=== PATIENT | female | born 1970 | race Caucasian/White ===

== ENCOUNTER 2017-12-16 16:55 | Inpatient (IN) | payer MEDICARE ==
[~2017-12-16] VITALS: Ht 160 cm; Wt 110.7 kg
[~2017-12-16 16:55] MED LIST: CELEXA; GABAPENTIN100 MG PO; IRON; LASIX20 MG PO; MULTIVITAMINS1 EAC8 PO; NEXIUM40 MG PO; POTASSIUM99 MG PO; SUBOXONE 8 MG-1 EAC2 SL; ZOFRAN8 MG PO
[2017-12-16] MEDS ORDERED: SODIUM CHLORIDE 0.9% 1000ML 1,000 ML IV STA (17:31)
[2017-12-16] MEDS ORDERED: ONDANSETRON HCL INJ 2 MG/ML VIAL IV STA (17:31)
[2017-12-16] MEDS ORDERED: MORPHINE SULFATE 4 MG/ML SYR IV STA (17:31)
[2017-12-16] MEDS ORDERED: MORPHINE SULFATE 2 MG/ML SYR IV ONE (17:45)
[2017-12-16 18:20] LABS: BILIRUBIN,URINE 1+ (NEGATIVE); KETONES,URINE NEGATIVE (NEGATIVE); LEUKOCYTE ESTERASE ,URINE 2+ (NEGATIVE); URINE UROBILINOGEN 1 mg/dL (0.2 - 1)
[2017-12-16 18:22] LABS: NITRITE,URINE POSITIVE (NEGATIVE); PROTEIN,URINE DIPSTICK TRACE (NEGATIVE)
[2017-12-16 18:23] LABS: CLARITY,URINE HAZY (CLEAR); COLOR,URINE AMBER (YELLOW); PREGNANCY TEST, URINE NEGATIVE (NEGATIVE)
[2017-12-16 18:31] LABS: BACTERIA,URINE MANY /HPF; EPITHELIAL CELLS,URINE MODERATE /LPF; WBC,URINE (MAN) >50 /HPF (0-5)
[2017-12-16 18:32] LABS: AMORPHOUS SEDIMENT,URINE FEW (FEW); MUCUS,URINE MODERATE (RARE)
--- NOTE | 2017-12-16 18:59 | Diagnostic Imaging Report ---
EXAM: CT Abdomen and Pelvis WITHOUT contrast INDICATION: Severe right flank pain. Nausea and vomiting. COMPARISON: None. TECHNIQUE: Abdomen and pelvis were scanned utilizing a multidetector helical scanner from the lung base to the pubic symphysis without administration of IV contrast. Absence of intravenous contrast decreases sensitivity for detection of focal lesions and vascular pathology. Coronal and sagittal reformations were obtained. Routine protocol was performed. IV CONTRAST: None. ORAL CONTRAST: Water RADIATION DOSE: Total DLP: 748.55No change from CT BRAIN WO with report dated 06/06/2012 8:21 AM. mGy*cm Estimated effective dose: (DLP x 0.015 x size factor) mSv COMPLICATIONS: None FINDINGS: LINES and TUBES: None. LOWER THORAX: Unremarkable HEPATOBILIARY: No focal hepatic lesions. No biliary ductal dilation. GALLBLADDER: Surgically absent. SPLEEN: No splenomegaly. PANCREAS: No focal masses or ductal dilatation. ADRENALS: No adrenal nodules KIDNEYS/URETERS: Mild right sided hydroureteronephrosis. 5 mm calcification in the posterior right hemipelvis on image 155 series 3 corresponding to sagittal image 72, concerning for an obstructing UVJ calculus. No cystic or solid mass lesions. 2 punctate calculi in the lower pole of the right kidney. Bilateral perinephric stranding, right greater than left. GI TRACT: Postoperative changes involving the stomach and proximal small bowel suggestive of status post gastric bypass. PELVIC ORGANS/BLADDER: Unremarkable. LYMPH NODES: No lymphadenopathy. VESSELS: Unremarkable. PERITONEUM / RETROPERITONEUM: No free air or fluid. BONES: Degenerative disc disease at L5-S1. SOFT TISSUES: Unremarkable. IMPRESSION: 1. Findings suggestive of 5 mm obstructing calculus right UVJ resulting in mild right hydroureteronephrosis. Signed by: Dr. Felipe Kinney M.D. on 12/16/2017 6:55 PM
[2017-12-16] MEDS ORDERED: ACETAMINOPHEN 325 MG TAB PO ONE (19:15)
[2017-12-16] MEDS ORDERED: ACETAMINOPHEN 325 MG TAB ONE (19:17)
[2017-12-16] MEDS ORDERED: CEFTRIAXONE SOD 1 GM VIAL IV SCH ×2 (19:30→20:45)
[2017-12-16] MEDS ORDERED: GENTAMICIN 80MG/NS 100 ML 100 ML IV ONE ×4 (19:45)
[2017-12-16 20:19] LABS: BASOPHILS % 0.4 % (0.0-1.0); EOSINOPHILS % 0.1 % (0.0-6.0); HEMATOCRIT 31.3 % (34.2-44.1); HEMOGLOBIN 9.5 g/dL (12.0-16.0); LYMPHOCYTES # (AUTO) 0.6 (1.0-3.2); LYMPHOCYTES % 6.9 % (18.0-39.1); MEAN CORPUSCULAR HEMOGLOBIN 24.8 pg (28-32); MEAN CORPUSCULAR HGB CONC 30.4 g/dL (31-35); MEAN CORPUSCULAR VOLUME 81.7 fL (81-99); MONOCYTES # (AUTO) 0.3 (0.2-0.8); NEUTROPHILS # (AUTO) 7.5 (2.1-6.9); NEUTROPHILS % 89.4 % (38.7-80.0); PLATELET COUNT 207 x10e3/uL (140-360); RED BLOOD COUNT 3.83 x10e6/uL (3.6-5.1); RED CELL DISTRIBUTION WIDTH 16.6 % (11.7-14.4)
[2017-12-16 20:38] LABS: ALANINE AMINOTRANSFERASE 364 IU/L (0-55); ALBUMIN 3.2 g/dL (3.5-5.0); ALBUMIN/GLOBULIN RATIO 0.7 (0.8-2.0); ALKALINE PHOSPHATASE 255 IU/L (40-150); ANION GAP 16.2 mmol/L (8-16); BLOOD UREA NITROGEN 13 mg/dL (7-26); BUN/CREATININE RATIO 18 (6-25); CALCIUM 8.2 mg/dL (8.4-10.2); CARBON DIOXIDE 21 mmol/L (22-29); CHLORIDE 103 mmol/L (98-107); CREATININE, SERUM 0.72 mg/dL (0.57-1.11); EST GLOMERULAR FILTRATION RATE > 60 ML/MIN (60-); GLUCOSE 71 mg/dL (74-118); LIPASE 19 U/L (8-78); POTASSIUM 4.2 mmol/L (3.5-5.1); SODIUM 136 mmol/L (136-145)
[2017-12-16] MEDS: SODIUM CHLORIDE 0.9% 1000ML 1,000 ML IV SCH (20:45)
[2017-12-16] MEDS ORDERED: MORPHINE SULFATE 2 MG/ML SYR IV PRN (20:45)
[2017-12-16] MEDS ORDERED: DIPHENHYDRAMINE HCL INJ 50 MG/ML VIAL IV ONE (23:00)
[2017-12-16] MEDS: ACETAMINOPHEN 1000 MG/100 ML IV PRN (23:20)
[2017-12-17] VITALS (8 sets, daily range): BP systolic 111–142; BP diastolic 50–63
[2017-12-17] MEDS: ONDANSETRON HCL INJ 2 MG/ML VIAL IV PRN ×2 (00:56→05:54)
[2017-12-17] MEDS: HYDROMORPHONE 1MG/1ML INJ IV PRN ×2 (00:56→05:54)
[2017-12-17] MEDS: SODIUM CHLORIDE 0.9% 1000ML 1,000 ML IV SCH ×3 (04:45→19:05)
[2017-12-17] MEDS: ACETAMINOPHEN 1000 MG/100 ML IV PRN ×2 (06:32→19:34)
[2017-12-17] MEDS ORDERED: IOPAMIDOL 610MG/1ML 300 MG/ML VIAL IV ONE (06:47)
[2017-12-17 07:01] LABS: BASOPHILS % 0.4 % (0.0-1.0); EOSINOPHILS % 0.1 % (0.0-6.0); HEMOGLOBIN 8.5 g/dL (12.0-16.0); LYMPHOCYTES # (AUTO) 0.7 (1.0-3.2); LYMPHOCYTES % 7.1 % (18.0-39.1); MEAN CORPUSCULAR HEMOGLOBIN 24.6 pg (28-32); MEAN CORPUSCULAR HGB CONC 30.4 g/dL (31-35); MEAN CORPUSCULAR VOLUME 81.2 fL (81-99); MONOCYTES # (AUTO) 0.4 (0.2-0.8); NEUTROPHILS # (AUTO) 8.4 (2.1-6.9); NEUTROPHILS % 87.7 % (38.7-80.0); PLATELET COUNT 187 x10e3/uL (140-360); RED BLOOD COUNT 3.45 x10e6/uL (3.6-5.1); RED CELL DISTRIBUTION WIDTH 16.7 % (11.7-14.4)
[2017-12-17 07:24] LABS: ALANINE AMINOTRANSFERASE 255 IU/L (0-55); ALBUMIN 2.7 g/dL (3.5-5.0); ALBUMIN/GLOBULIN RATIO 0.7 (0.8-2.0); ALKALINE PHOSPHATASE 219 IU/L (40-150); ANION GAP 11.5 mmol/L (8-16); BLOOD UREA NITROGEN 15 mg/dL (7-26); BUN/CREATININE RATIO 21 (6-25); CALCIUM 7.8 mg/dL (8.4-10.2); CARBON DIOXIDE 22 mmol/L (22-29); CHLORIDE 104 mmol/L (98-107); CREATININE, SERUM 0.73 mg/dL (0.57-1.11); EST GLOMERULAR FILTRATION RATE > 60 ML/MIN (60-); GLUCOSE 81 mg/dL (74-118); POTASSIUM 3.5 mmol/L (3.5-5.1); SODIUM 134 mmol/L (136-145)
[2017-12-17] MEDS ORDERED: FENTANYL CITRATE/PF 100MCG/2 ML INJ ONE ×2 (07:50→14:40)
--- NOTE | 2017-12-17 07:52 | Operative Report ---
DATE OF PROCEDURE: December 17, 2017 PREOPERATIVE DIAGNOSES 1. Microscopic hematuria. 2. Right-sided hydronephrosis. POSTOPERATIVE DIAGNOSES 1. Microscopic hematuria. 2. Right-sided hydronephrosis. PROCEDURES 1. Cystourethroscopy with left ureteral catheterization and left retrograde pyelogram (separate procedure for diagnosis of microscopic hematuria). 2. Cystourethroscopy with insertion of a right indwelling ureteral stent (entirely separate procedure for right hydronephrosis). 3. Supervision of fluoroscopy. 4. Interpretation of retrograde ureteropyelography. ANESTHESIA: General. ESTIMATED BLOOD LOSS: Minimal. COMPLICATIONS: None. INDICATIONS FOR PROCEDURE: Mrs. Redmond is a 47-year-old female with a history of obstructed and infected urinary system. She and I had a long discussion about alternatives, risks and benefits including doing nothing, stent placement, percutaneous nephrostomy, open surgery. She voiced understanding of the options, alternatives, risks and benefits. She voiced explicit understanding that the stent is temporary device, and it must be removed. Failure to do so could lead to encrustation, infection, inflammation, actual loss of kidney, and even . She elected to proceed. PROCEDURE IN DETAIL: After informed consent was obtained, the patient was taken to the operative suite and placed supine on the table. Underwent general anesthesia by the anesthesia service. Was placed in the dorsal lithotomy position and sterilely prepped and draped in the standard fashion for cystoscopy. A 22.5-Polish cystoscope was inserted per urethra and normal bladder was noted. Panendoscopy of the bladder revealed no tumors and no stones. Both ureteral orifices were within normal anatomic location and position and seen to efflux clear urine. Bilateral retrograde pyelograms were performed. The left was normal. The right revealed a very distal filling defect with proximal hydronephrosis. A 6 x 24 ureteral stent was deployed on the right side. The bladder was drained. The patient was awakened from anesthesia and transported to the recovery room in excellent condition. SUPERVISION OF FLUOROSCOPY, INTERPRETATION OF RETROGRADE URETERAL PYELOGRAPHY: I was present throughout the entire procedure and I supervised the use of fluoroscopy as there was no radiologist present at any time during this procedure. Attention was turned toward the left and right ureteral orifices, catheterized with a 5-Polish open-ended catheter. Retrograde pyelogram was performed. On the right, revealed a distal filling defect with the proximal hydronephrosis. The left was normal. Job#: [id number] RI
--- NOTE | 2017-12-17 08:02 | Consultation ---
DATE OF CONSULTATION: December 17, 2017 CHIEF UROLOGICAL COMPLAINT/REASON FOR CONSULTATION: Kidney stone. HISTORY OF PRESENT ILLNESS: Mrs. Redmond is a 47-year-old female admitted to the hospital with fevers, and found to have obstructed and infected right distal ureteral calculus with proximal hydronephrosis. She has had dysuria, frequency and urgency. PAST MEDICAL HISTORY: Noted for obesity, status post gastric bypass, gastroesophageal reflux disease, NovaSure ablation of the uterus in June 2013. MEDICATIONS: Please see MAR. ALLERGIES: MORPHINE. SOCIAL HISTORY: No smoking or drinking. FAMILY HISTORY: Not significant for urologic stones nor malignancies . REVIEW OF SYSTEMS: All 12 points were negative. PHYSICAL EXAMINATION GENERAL: Obese and not in acute distress. VITALS: Currently, she is afebrile. Her vital signs are normal. NECK: Supple. BACK: Without costovertebral angle tenderness. ABDOMEN: Soft and nontender. No palpable masses or hernias. : Normal female external genitalia. EXTREMITIES: Without edema. PSYCH: Alert and appropriate. SKIN: Intact. Normal color. PERTINENT LABORATORY DATA: CT scan with a 5 mm right UPJ stone with hydronephrosis. Hemoglobin 9, hematocrit 31 and platelet count 207,000, white cell count 8350. Sodium 136, potassium 4.2, chloride 103, bicarb 21, BUN 13, creatinine 0.7, glucose 71. Calcium 8.2. AST of 434, ALT 364. Urinalysis greater than 50 whites and 11-20 reds. IMPRESSION 1. Microscopic hematuria. 2. Hydronephrosis. 3. Ureteral calculus. 4. Urinary tract infection. 5. Renal colic. 6. Obesity. 7. Anemia. 8. Hypocalcemia. 9. Elevated liver function tests. PLAN: We would like to defer to the primary service. For the obstructed and infected system, will stent emergently. Will employ a trial of passage. Should this fail, will return for stent removal and urethroscopic extraction of stone. Thank you for allowing me to participate in the care of your patient. We will be happy to follow along with you. Job#: [id number] RI cc: MARYBEL BAEZ MD [facility]
[2017-12-17 08:27] LABS: BAND NEUTROPHILS % (MANUAL) 19 %; LYMPHOCYTES % (MANUAL) 13 % (19-48); MONOCYTES % (MANUAL) 5 % (3.4-9.0); NEUTROPHILS % (MANUAL) 60 % (40-74)
[2017-12-17 08:28] LABS: ANISOCYTOSIS SLIGHT; HYPOCHROMASIA SLIGHT; PLATELET ESTIMATE ADEQUATE; PLATELET MORPHOLOGY COMMENT NORMAL; POIKILOCYTOSIS SLIGHT; RBC MORPHOLOGY COMMENT NORMAL
[2017-12-17] MEDS ORDERED: [UNRECOGNIZED DRUG - OTHER] SL PRN (09:15)
[2017-12-17] MEDS ORDERED: BUPRENORPHINE HCL SL PRN (09:15)
[2017-12-17] MEDS ORDERED: NALOXONE HCL SL PRN (09:15)
[2017-12-17] MEDS: GABAPENTIN 300 MG CAP PO SCH (09:36)
--- NOTE | 2017-12-17 09:46 | History and Physical ---
PCP: Dr. Stratton HELMET HAT BRIM CUTTER: Dr. Jack Weems CHIEF COMPLAINT: Right renal colic associated with fever, abdominal pain and weakness with dehydration. HISTORY: Patient is a 47-year-old female with a history of kidney stone. The last one was 12 years ago when she was with her daughter, but since then the patient was doing okay. For approximately 1 week, she was experiencing right-sided abdominal pain associated with foul odorous urine and then subsequently fever. Her fever was 101 on admission. Blood pressure was okay, but she was tachycardic. The patient had a CT scan of the abdomen and pelvis done showed that she does have significant 5 mm obstructive calculus in the right UVJ resulting in right hydroureteronephrosis. The patient underwent stent placement. On urinalysis, the patient's urine was with 1+ blood, positive nitrite, positive leukocyte esterase, wbcs greater than 50, many bacteria. The patient is admitted for IV antibiotics. IV fluid was given for rehydration. PAST MEDICAL HISTORY: Kidney stone 12 years ago, reflux, dependent edema secondary to obesity, chronic nausea. The patient is on Suboxone treatment. PAST SURGICAL HISTORY: Complete hysterectomy, , cholecystectomy, history of gastric bypass surgery. SOCIAL HISTORY: The patient does not smoke or drink alcohol. No recreational drug use. ALLERGIES: MORPHINE. HOME MEDICATIONS: Suboxone, Nexium, Lasix, gabapentin, multivitamin, Zofran. REVIEW OF SYSTEMS: Abdominal pain, right renal colic, fever, generalized weakness, nausea, and vomiting. PHYSICAL EXAMINATION VITAL SIGNS: Temperature is 101, blood pressure 128/58, pulse rate is 85-101, respirations 18. GENERAL: The patient is not in acute distress. She is improving. HEENT: Normocephalic, atraumatic and anicteric. NECK: Supple grossly. PULMONARY: Diminished breath sounds bilaterally. CARDIOVASCULAR: Tachycardia. ABDOMEN: Soft. Tenderness in the right side. Right CVA tenderness associated with some guarding. No rebound. Obesity. EXTREMITIES: Lower extremities with no edema. No cyanosis. NEUROLOGIC: No focal deficit. LABORATORY: Sodium is 134, potassium 3.5, chloride 104, bicarb 22, BUN 15, creatinine 0.7, glucose 81. WBC is 9.6, hemoglobin 8.5, hematocrit 28, and platelets is 187,000. Liver enzymes on admission with AST was 439, ALT was 364 and alkaline phosphatase is 255. Lipase 19. IMPRESSION 1. Sepsis without shock: Blood pressure was stable. 2. Acute nonviral hepatitis secondary to infection. 3. Right renal colic associated right hydroureteronephrosis. 4. Fever and tachycardia. 5. Chronic anemia most likely secondary to history of gastric bypass surgery. PLAN: Continue with IV antibiotics. IV fluids. Repeat lab work. Pain control. Increase activity as tolerated. Check urine culture and blood culture. Job#: [id number] NH
[2017-12-17 10:04] LABS: THYROID STIMULATING HORMONE 0.243 uIU/mL (0.350-4.940)
[2017-12-17 10:36] LABS: FOLATE 8.4 ng/mL (7.0-15.4)
[2017-12-17] MEDS: KETOROLAC TROMETHAMINE 30 MG/ML VIAL IV PRN ×2 (11:12→17:30)
[2017-12-17] MEDS ORDERED: LIDOCAINE HCL 2% LOCAL INJ 5 ML SDV VIAL INJ ONE (13:23)
[2017-12-17] MEDS ORDERED: ONDANSETRON HCL INJ 2 MG/ML VIAL ONE (13:23)
[2017-12-17] MEDS ORDERED: SEVOFLURANE INHAL SOLN 250 ML PEN BTL ONE (13:23)
[2017-12-17] MEDS ORDERED: DEXAMETHASONE SOD PHOS INJ 4 MG/ML VIAL ONE (13:23)
[2017-12-17] MEDS ORDERED: PROPOFOL IV EMULSION 10 MG/ML 20 ML VIAL ONE (13:23)
[2017-12-17] MEDS ORDERED: MIDAZOLAM HCL 2 MG/2 ML VIAL ONE (14:40)
[2017-12-17] MEDS ORDERED: CEFTRIAXONE SOD 1 GM VIAL IV SCH (21:00)
[2017-12-18] VITALS (7 sets, daily range): BP systolic 127–169; BP diastolic 58–92
[2017-12-18] MEDS: ACETAMINOPHEN 325 MG TAB PO PRN ×3 (01:55→17:41)
[2017-12-18] MEDS: SODIUM CHLORIDE 0.9% 1000ML 1,000 ML IV SCH (03:27)
[2017-12-18] MEDS: KETOROLAC TROMETHAMINE 30 MG/ML VIAL IV PRN ×2 (03:45→21:01)
[2017-12-18 06:25] LABS: BASOPHILS % 0.2 % (0.0-1.0); EOSINOPHILS % 0.2 % (0.0-6.0); HEMATOCRIT 24.8 % (34.2-44.1); LYMPHOCYTES # (AUTO) 0.9 (1.0-3.2); LYMPHOCYTES % 14.2 % (18.0-39.1); MEAN CORPUSCULAR VOLUME 80.5 fL (81-99); MONOCYTES # (AUTO) 0.2 (0.2-0.8); MONOCYTES % 3.1 % (4.4-11.3); PLATELET COUNT 132 x10e3/uL (140-360); RED BLOOD COUNT 3.08 x10e6/uL (3.6-5.1); RED CELL DISTRIBUTION WIDTH 16.6 % (11.7-14.4)
[2017-12-18 06:42] LABS: HEMOGLOBIN 7.7 g/dL (12.0-16.0)
[2017-12-18 06:49] LABS: ALANINE AMINOTRANSFERASE 141 IU/L (0-55); ALBUMIN 2.2 g/dL (3.5-5.0); ALBUMIN/GLOBULIN RATIO 0.6 (0.8-2.0); ALKALINE PHOSPHATASE 179 IU/L (40-150); ANION GAP 12.4 mmol/L (8-16); BLOOD UREA NITROGEN 14 mg/dL (7-26); BUN/CREATININE RATIO 19 (6-25); CALCIUM 8.1 mg/dL (8.4-10.2); CARBON DIOXIDE 21 mmol/L (22-29); CHLORIDE 110 mmol/L (98-107); CREATININE, SERUM 0.73 mg/dL (0.57-1.11); EST GLOMERULAR FILTRATION RATE > 60 ML/MIN (60-); GLUCOSE 80 mg/dL (74-118); POTASSIUM 3.4 mmol/L (3.5-5.1); SODIUM 140 mmol/L (136-145)
[2017-12-18] MEDS ORDERED: FUROSEMIDE INJ 10 MG/ML 2 ML VIAL IV PRN (07:45)
[2017-12-18] MEDS ORDERED: SODIUM CHLORIDE 0.9% 250ML 250 ML IV ONE (07:45)
[2017-12-18 08:50] LABS: BAND NEUTROPHILS % (MANUAL) 6 %; LYMPHOCYTES % (MANUAL) 15 % (19-48); MONOCYTES % (MANUAL) 4 % (3.4-9.0); NEUTROPHILS % (MANUAL) 75 % (40-74)
[2017-12-18 08:51] LABS: ANISOCYTOSIS SLIGHT; HYPOCHROMASIA MODERATE; PLATELET ESTIMATE SLIGHTLY DECREASED; PLATELET MORPHOLOGY COMMENT FEW LARGE; RBC MORPHOLOGY COMMENT NORMAL
[2017-12-18] MEDS ORDERED: MULTIVITAMIN PO SCH (09:00)
[2017-12-18] MEDS ORDERED: GABAPENTIN 100 MG CAP PO SCH (09:00)
[2017-12-18] MEDS ORDERED: MEROPENEM 1GRAM 1 GM in SODIUM CHLORIDE 0.9% 100 ML 100 ML IV SCH (09:00)
[2017-12-18] MEDS: CYANOCOBALAMIN INJ 1,000 MCG/ML VIAL IM SCH (09:41)
[2017-12-18] MEDS: MEROPENEM 1 GM VIAL IV SCH ×2 (09:41→20:36)
[2017-12-18] MEDS: PANTOPRAZOLE SOD 40 MG TABEC PO SCH (09:41)
[2017-12-18] MEDS: MULTIVITAMINS/MINERALS TAB PO SCH (09:41)
[2017-12-18] MEDS: GABAPENTIN 300 MG CAP PO SCH (09:41)
[2017-12-18] MEDS ORDERED: SODIUM CHLORIDE 0.9% 250ML 250 ML ONE ×2 (12:00→17:31)
[2017-12-18] MEDS ORDERED: ACETAMINOPHEN 1000 MG/100 ML IV PRN (17:50)
[2017-12-19 03:39] LABS: BASOPHILS % 0.5 % (0.0-1.0); HEMATOCRIT 29.9 % (34.2-44.1); HEMOGLOBIN 9.7 g/dL (12.0-16.0); LYMPHOCYTES # (AUTO) 0.7 (1.0-3.2); MEAN CORPUSCULAR HEMOGLOBIN 25.5 pg (28-32); MEAN CORPUSCULAR HGB CONC 32.4 g/dL (31-35); MEAN CORPUSCULAR VOLUME 78.7 fL (81-99); MONOCYTES # (AUTO) 0.4 (0.2-0.8); MONOCYTES % 9.9 % (4.4-11.3); NEUTROPHILS # (AUTO) 3.1 (2.1-6.9); NEUTROPHILS % 72.1 % (38.7-80.0); PLATELET COUNT 115 x10e3/uL (140-360); RED CELL DISTRIBUTION WIDTH 16.4 % (11.7-14.4)
[2017-12-19 04:02] LABS: ALANINE AMINOTRANSFERASE 105 IU/L (0-55); ALBUMIN 2.4 g/dL (3.5-5.0); ALBUMIN/GLOBULIN RATIO 0.5 (0.8-2.0); ALKALINE PHOSPHATASE 192 IU/L (40-150); ANION GAP 14.1 mmol/L (8-16); BLOOD UREA NITROGEN 12 mg/dL (7-26); BUN/CREATININE RATIO 16 (6-25); CALCIUM 8.3 mg/dL (8.4-10.2); CARBON DIOXIDE 21 mmol/L (22-29); CHLORIDE 105 mmol/L (98-107); CREATININE, SERUM 0.73 mg/dL (0.57-1.11); EST GLOMERULAR FILTRATION RATE > 60 ML/MIN (60-); GLUCOSE 110 mg/dL (74-118); POTASSIUM 3.1 mmol/L (3.5-5.1); SODIUM 137 mmol/L (136-145)
[2017-12-19 04:11] VITALS: BP 152/78
[2017-12-19 05:13] VITALS: BP 123/62
[2017-12-19 08:00] VITALS: BP 133/82
[2017-12-19] MEDS: MULTIVITAMINS/MINERALS TAB PO SCH (08:47)
[2017-12-19] MEDS: MEROPENEM 1 GM VIAL IV SCH (08:47)
[2017-12-19] MEDS: CYANOCOBALAMIN INJ 1,000 MCG/ML VIAL IM SCH (08:47)
[2017-12-19] MEDS: ACETAMINOPHEN 325 MG TAB PO PRN ×2 (08:47→16:27)
[2017-12-19] MEDS: PANTOPRAZOLE SOD 40 MG TABEC PO SCH (08:47)
[2017-12-19] MEDS: GABAPENTIN 300 MG CAP PO SCH (08:47)
[2017-12-19] MEDS ORDERED: GENTAMICIN 120MG/NS 100ML 100 ML IV ONE (09:30)
[2017-12-19 12:00] VITALS: BP 118/72
[2017-12-19 16:00] VITALS: BP 129/81
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
[2017-12-19] MEDS: MEROPENEM 500 MG VIAL IV SCH (17:18)
[2017-12-19] MEDS ORDERED: MEROPENEM 500MG 500 MG in SODIUM CHLORIDE 0.9% 50ML 50 ML IV SCH (18:00)
[2017-12-19 20:00] VITALS: BP 119/75
[2017-12-19] MEDS: KETOROLAC TROMETHAMINE 30 MG/ML VIAL IV PRN (20:58)
[2017-12-20] VITALS: BP 121/68
[2017-12-20 00:01] VITALS: BP 121/68
[2017-12-20] MEDS: MEROPENEM 500 MG VIAL IV SCH ×5 (00:45→23:34)
[2017-12-20] MEDS: ACETAMINOPHEN 325 MG TAB PO PRN ×3 (05:37→23:35)
[2017-12-20] MEDS: KETOROLAC TROMETHAMINE 30 MG/ML VIAL IV PRN ×2 (06:15→23:35)
[2017-12-20 08:00] VITALS: BP 132/77
[2017-12-20] MEDS: CYANOCOBALAMIN INJ 1,000 MCG/ML VIAL IM SCH (09:18)
[2017-12-20] MEDS: MULTIVITAMINS/MINERALS TAB PO SCH (09:18)
[2017-12-20] MEDS: GABAPENTIN 300 MG CAP PO SCH (09:18)
[2017-12-20] MEDS: PANTOPRAZOLE SOD 40 MG TABEC PO SCH (09:18)
[2017-12-20 12:00] VITALS: BP 138/80
[2017-12-20 16:00] VITALS: BP 155/83
[2017-12-20 20:00] VITALS: BP 166/65
--- NOTE | 2017-12-20 20:30 | Diagnostic Imaging Report ---
EXAMINATION: CHEST XRAY LINE PLACEMENT INDICATION: \S\confirm PICC line placement COMPARISON: 11/09/2015 FINDINGS: AP view TUBES and LINES: Right PICC in place with tip overlying cavoatrial junction. LUNGS: Low lung volumes. Lungs are clear. There is no evidence of pneumonia or pulmonary edema. PLEURA: No pleural effusion or pneumothorax. HEART AND MEDIASTINUM: Enlarged cardiac silhouette. BONES AND SOFT TISSUES: No acute osseous lesion. Soft tissues are unremarkable. UPPER ABDOMEN: No free air under the diaphragm. IMPRESSION: Right PICC in place with tip overlying cavoatrial junction. No visible pneumothorax. Signed by: Dr. Nabor Wilson MD on 12/20/2017 8:27 PM
[2017-12-21] VITALS (8 sets, daily range): BP systolic 128–151; BP diastolic 60–70
[2017-12-21] MEDS: MEROPENEM 500 MG VIAL IV SCH ×4 (05:24→23:49)
[2017-12-21] MEDS: PANTOPRAZOLE SOD 40 MG TABEC PO SCH (08:38)
[2017-12-21] MEDS: MULTIVITAMINS/MINERALS TAB PO SCH (08:38)
[2017-12-21] MEDS: GABAPENTIN 300 MG CAP PO SCH (08:38)
[2017-12-21] MEDS: ACETAMINOPHEN 325 MG TAB PO PRN (16:42)
[2017-12-22] VITALS (8 sets, daily range): BP systolic 111–135; BP diastolic 57–71
[2017-12-22] MEDS: MEROPENEM 500 MG VIAL IV SCH ×3 (05:20→18:01)
[2017-12-22] MEDS: PANTOPRAZOLE SOD 40 MG TABEC PO SCH (08:45)
[2017-12-22] MEDS: GABAPENTIN 300 MG CAP PO SCH (08:45)
[2017-12-22] MEDS: MULTIVITAMINS/MINERALS TAB PO SCH (08:45)
[2017-12-22] MEDS: KETOROLAC TROMETHAMINE 30 MG/ML VIAL IV PRN (15:50)
[2017-12-23] VITALS (7 sets, daily range): BP systolic 114–131; BP diastolic 57–81
[2017-12-23] MEDS: MEROPENEM 500 MG VIAL IV SCH ×4 (00:17→18:16)
[2017-12-23 05:55] LABS: BASOPHILS % 0.5 % (0.0-1.0); EOSINOPHILS # (AUTO) 0.1 (0.0-0.4); EOSINOPHILS % 2.3 % (0.0-6.0); HEMATOCRIT 30.1 % (34.2-44.1); HEMOGLOBIN 9.8 g/dL (12.0-16.0); LYMPHOCYTES # (AUTO) 2.1 (1.0-3.2); LYMPHOCYTES % 33.4 % (18.0-39.1); MEAN CORPUSCULAR HEMOGLOBIN 25.4 pg (28-32); MEAN CORPUSCULAR HGB CONC 32.6 g/dL (31-35); MONOCYTES # (AUTO) 0.6 (0.2-0.8); MONOCYTES % 9.5 % (4.4-11.3); NEUTROPHILS # (AUTO) 3.3 (2.1-6.9); NEUTROPHILS % 53.8 % (38.7-80.0); PLATELET COUNT 266 x10e3/uL (140-360); RED BLOOD COUNT 3.86 x10e6/uL (3.6-5.1); RED CELL DISTRIBUTION WIDTH 16.5 % (11.7-14.4)
[2017-12-23 06:18] LABS: ANION GAP 12.3 mmol/L (8-16); BLOOD UREA NITROGEN 9 mg/dL (7-26); BUN/CREATININE RATIO 15 (6-25); CALCIUM 8.3 mg/dL (8.4-10.2); CARBON DIOXIDE 32 mmol/L (22-29); CHLORIDE 101 mmol/L (98-107); CREATININE, SERUM 0.59 mg/dL (0.57-1.11); EST GLOMERULAR FILTRATION RATE > 60 ML/MIN (60-); GLUCOSE 104 mg/dL (74-118); POTASSIUM 3.3 mmol/L (3.5-5.1); SODIUM 142 mmol/L (136-145)
[2017-12-23] MEDS: PANTOPRAZOLE SOD 40 MG TABEC PO SCH (08:48)
[2017-12-23] MEDS: GABAPENTIN 300 MG CAP PO SCH (08:48)
[2017-12-23] MEDS: MULTIVITAMINS/MINERALS TAB PO SCH (08:48)
[2017-12-24] MEDS: MEROPENEM 500 MG VIAL IV SCH ×3 (00:08→11:40)
[2017-12-24] MEDS: KETOROLAC TROMETHAMINE 30 MG/ML VIAL IV PRN (00:14)
[2017-12-24 01:02] VITALS: BP 121/53
[2017-12-24 05:39] VITALS: BP 116/66
[2017-12-24 08:00] VITALS: BP 127/61
[2017-12-24] MEDS: PANTOPRAZOLE SOD 40 MG TABEC PO SCH (08:30)
[2017-12-24] MEDS: GABAPENTIN 300 MG CAP PO SCH (08:30)
[2017-12-24] MEDS: MULTIVITAMINS/MINERALS TAB PO SCH (08:30)
--- NOTE | 2017-12-24 09:33 | Discharge Summary ---
PRIMARY CARE PHYSICIAN: Dr. Corey Stratton CONSULTANTS: Dr. Ariana Stacy and Dr. Jack Weems. FINAL DIAGNOSES 1. Complicated urinary tract infection associated with extended spectrum beta-lactamase bacteria, multiresistant bacteria, Escherichia coli. 2. Status post right ureteral stent secondary to right hydronephrosis with stone. 3. Stone management with pain. SUMMARY: Patient is a 47-year-old female basically with ESBL urinary tract infection. The patient had a complicated UTI with kidney stone. Came in with right renal colic and obstructed right ureter with hydronephrosis. The patient is stable. She had a stent done. She is comfortable now. She will go home today and continue with IV antibiotic as an outpatient per Dr.. Stacy. The patient does have chronic anemia secondary to iron deficiency from her history of gastric bypass surgery. The patient is stable and discharged home on antibiotics per Dr. Stacy. Resume the patient's home medications. Pain control. Job#: [id number] UBALDO
[2017-12-24] MEDS ORDERED: ERTAPENEM 1GM/NS 100ML 100 ML IV ONE (12:00)
[2017-12-24] MEDS ORDERED: ERTAPENEM 1 GM in SODIUM CHLORIDE 0.9% 50ML 50 ML IV NR (13:00)
[2017-12-24 13:55] VITALS: BP 133/69
== END 2017-12-24 14:20 | disposition home or self-care (01) | DRG 853 ==
LOC: ER 16:55 → ERHOLD 21:20 → MED/SURG 22:20 → MED/SURG2 12-18 15:45
PROVIDERS: ADMIT Internal Medicine; ATTEND Internal Medicine
PROC: 30233N1 Transfusion of Nonautologous Red Blood Cells into Peripheral Vein, Percutaneous Approach (ICD-10-PCS; 2017-12-16)
PROC: 0T7 Urinary System, Dilation (ICD-10-PCS; 2017-12-17)
PROC: BT1F1ZZ Fluoroscopy of Left Kidney, Ureter and Bladder using Low Osmolar Contrast (ICD-10-PCS; 2017-12-17)
PROC: BT1D1ZZ Fluoroscopy of Right Kidney, Ureter and Bladder using Low Osmolar Contrast (ICD-10-PCS; 2017-12-17)
PROC: 0T764DZ Dilation of Right Ureter with Intraluminal Device, Percutaneous Endoscopic Approach (ICD-10-PCS; principal; 2017-12-17 07:09)
PROC: 02HV33Z Insertion of Infusion Device into Superior Vena Cava, Percutaneous Approach (ICD-10-PCS; 2017-12-20)
DX: A41.9 Sepsis, unspecified organism (principal); K72.00 Acute and subacute hepatic failure without coma; N13.6 Pyonephrosis; N20.1 Calculus of ureter; Z68.41 Body mass index [BMI] 40.0-44.9, adult; Z87.442 Personal history of urinary calculi; Z98.84 Bariatric surgery status; B96.20 Unspecified Escherichia coli [E. coli] as the cause of diseases classified elsewhere; R94.5 Abnormal results of liver function studies; E83.51 Hypocalcemia; Z16.12 Extended spectrum beta lactamase (ESBL) resistance; D64.89 Other specified anemias
CPT/HCPCS: 36415; 36430; 36569; 71045; 74176; 74420; 80048; 80053; 81001; 81025; 82607; 82746; 83540; 83690; 84443; 84466; 85025; 86078; 86850; 86900; 86920; 87040; 87071; 87086; 87186; 87205; 87400; 96361; 99284; C1874; J0696; J1100; J1170; J1200; J1335; J1580; J1885; J1940; J2001; J2185; J2250; J2270; J2405; J3420; J7030; J7050; P9016

== ENCOUNTER 2018-03-15 08:33 | Inpatient (IN) | payer MEDICARE ==
[~2018-03-15] VITALS: Ht 165.1 cm; Wt 102.1 kg
--- OUTSIDE RECORDS SUMMARY | 2018-03-15 08:37 | XMS REPORT | Continuity of Care Document ---
Author Author [facility] Organization [facility] Address [address] [place] [address] Phone Unavailable Care Team Providers Care Lean Specialist Name Role Phone RADHA ZHONG MD PCP Insurance Providers Guarantor RedmondJosh Address [address] [place] [address] Email [email or web address] Payer [employer] Medicare Policy Number [id number] Subscriber's Name RedmondJosh yost Relationship 18 Self / Same As Patient Group Number [id number] Group Name [employer] Effective Date 11 Advance Directives Directive Response Recorded Date/Time Does the patient have an advance directive? No 12/17/17 12:22am If yes, is advance directive on file with [facility]? No 05/31/12 2:02pm If not on file with [facility] will patient provide a copy? No 12/16/17 7:59pm Do you have a Directive to Physician? No 12/16/17 7:59pm Do you have a Medical Power of Aerial Crop Duster? No 12/16/17 7:59pm Do you have an out of hospital Do Not Resuscitate Order? No 12/16/17 7:59pm Do you have any special needs we should be aware of? No 12/16/17 7:59pm Do you have a support person here with you today? Yes 12/16/17 7:59pm Did patient receive Notice of Privacy Practices? Yes 12/16/17 7:59pm Did patient receive patient rights and responsibilities? Yes 12/16/17 7:59pm Problems Medical Problem Onset Date Status Hydronephrosis Unknown UTI (urinary tract infection) Unknown Ureterolithiasis Unknown Medications Current Home Medications Medication Dose Units Route Directions Days Qty Instructions Start Date Buprenorphine Hcl/Naloxone Hcl (Suboxone 8 Mg-2 Mg Sl Film) 1 Each Film 8 Mg Sublingual Three Times A Day as needed for Restlessness Esomeprazole Magnesium (Nexium) 40 Mg Capsule.dr 40 Mg Oral Daily Furosemide (Lasix) 20 Mg Tablet 20 Mg Oral Daily 30 Tab Gabapentin 100 Mg Capsule 600 Mg Oral Daily Multivitamin (Multivitamins) 1 Each Tablet 1 Ea Oral Daily Ondansetron Hcl (Zofran) 8 Mg Tablet 8 Mg Oral Four Times Daily as needed for Nausea Past Home Medications Medication Directions Ordered Status Celexa , Daily Discontinued Iron , Daily Discontinued Potassium 99 Mg Tablet, 99 Mg Oral Daily Discontinued Social History Social History Problem Response Recorded Date/Time Onset Date Status Hx Psychiatric Problems No 12/17/2017 12:22am Not Applicable Not Applicable Hx Eating Disorder No 12/17/2017 12:22am Not Applicable Not Applicable Hx Substance Use Disorder Yes 12/17/2017 12:22am Not Applicable Not Applicable Hx Depression No 12/17/2017 12:22am Not Applicable Not Applicable Hx Alcohol Use No 12/17/2017 12:22am Not Applicable Not Applicable Hx Substance Use Treatment No 12/17/2017 12:22am Not Applicable Not Applicable Hx Physical Abuse No 12/17/2017 12:22am Not Applicable Not Applicable Hospital Discharge Instructions No hospital discharge instruction information available. Plan of Care Discharge Date 12/24/17 2:20pm Disposition HOME, SELF-CARE Instructions/Education Provided Back Pain Prescriptions See Medication Section Referrals WENCESLAO MICHAEL MD (Internal Medicine) Order Date: 12/25/2017 Entered Date: 12/24/2017 1:09pm Address: [address] [place] [id number] DEANN DAWSON MD (Urology) Entered Date: 12/24/2017 1:09pm Address: [address] [address] Functional Status Query Response Date Recorded Assistive Devices None December 17, 2017 12:28am Ambulation Ability Independent December 17, 2017 12:28am Toileting Ability Independent December 24, 2017 1:55pm Allergies, Adverse Reactions, Alerts Allergen Type Severity Reaction Status Last Updated Morphine Allergy Mild RASH Active 12/17/17 Immunizations No immunization information available. Vital Signs Acute Vital Signs Vital Response Date/Time Temperature (Fahrenheit) 97.6 degrees F (97.6 - 99.5) 12/24/2017 1:55pm Pulse Pulse Rate (adult) 93 bpm (60 - 90) 12/24/2017 1:55pm Respiratory Rate 18 bpm (12 - 24) 12/24/2017 1:55pm Blood Pressure 133/69 mm Hg 12/24/2017 1:55pm Height 5 ft 3 in 12/16/2017 5:25pm Weight 244.13 lb 12/22/2017 1:41am Body Mass Index 43.2 kg/m^2 12/22/2017 1:41am Results Laboratory Results Test Name Result Units Flags Reference Collection Date/Time Result Date/ Time Comments White Blood Count 6.19 x10e3/uL 4.8-10.8 12/23/2017 5:43am 12/23/2017 6 :14am Red Blood Count 3.86 x10e6/uL 3.6-5.1 12/23/2017 5:43am 12/23/2017 6: 14am Hemoglobin 9.8 g/dL L 12.0-16.0 12/23/2017 5:43am 12/23/2017 6:14am Hematocrit 30.1 % L 34.2-44.1 12/23/2017 5:43am 12/23/2017 6:14am Mean Corpuscular Volume 78.0 fL L 81-99 12/23/2017 5:43am 12/23/2017 6: 14am Mean Corpuscular Hemoglobin 25.4 pg L 28-32 12/23/2017 5:43am 2017 6:14am Mean Corpuscular Hemoglobin Concent 32.6 g/dL 31-35 12/23/2017 5:43am 12/23/2017 6:14am Red Cell Distribution Width 16.5 % H 11.7-14.4 12/23/2017 5:43am 2017 6:14am Platelet Count 266 x10e3/uL 140-360 12/23/2017 5:43am 12/23/2017 6: 14am Neutrophils (%) (Auto) 53.8 % 38.7-80.0 12/23/2017 5:43am 12/23/2017 6: 14am Lymphocytes (%) (Auto) 33.4 % 18.0-39.1 12/23/2017 5:43am 12/23/2017 6: 14am Monocytes (%) (Auto) 9.5 % 4.4-11.3 12/23/2017 5:43am 12/23/2017 6: 14am Eosinophils (%) (Auto) 2.3 % 0.0-6.0 12/23/2017 5:43am 12/23/2017 6: 14am Basophils (%) (Auto) 0.5 % 0.0-1.0 12/23/2017 5:43am 12/23/2017 6:14am IM GRANULOCYTES % 0.5 % 0.0-1.0 12/23/2017 5:43am 12/23/2017 6:14am Neutrophils # (Auto) 3.3 2.1-6.9 12/23/2017 5:43am 12/23/2017 6:14am Lymphocytes # (Auto) 2.1 1.0-3.2 12/23/2017 5:43am 12/23/2017 6:14am Monocytes # (Auto) 0.6 0.2-0.8 12/23/2017 5:43am 12/23/2017 6:14am Eosinophils # (Auto) 0.1 0.0-0.4 12/23/2017 5:43am 12/23/2017 6:14am Basophils # (Auto) 0.0 0.0-0.1 12/23/2017 5:43am 12/23/2017 6:14am Absolute Immature Granulocyte (auto 0.03 x10e3/uL 0-0.1 12/23/2017 5: 43am 12/23/2017 6:14am Differential Total Cells Counted 100 12/18/2017 6:11am 12/18/2017 8 :51am Neutrophils % (Manual) 75 % H 40-74 12/18/2017 6:11am 12/18/2017 8:51am Band Neutrophils % 6 % 12/18/2017 6:11am 12/18/2017 8:51am Lymphocytes % (Manual) 15 % L 19-48 12/18/2017 6:11am 12/18/2017 8:51am Monocytes % (Manual) 4 % 3.4-9.0 12/18/2017 6:11am 12/18/2017 8:51am Basophils % (Manual) 1 % 0-1.5 12/17/2017 6:11am 12/17/2017 8:28am Reactive Lymphocytes 2 12/17/2017 6:11am 12/17/2017 8:28am Platelet Estimate SLIGHTLY DECREASED 12/18/2017 6:11am 12/18/2017 8 :51am Platelet Morphology Comment FEW LARGE 12/18/2017 6:11am 12/18/2017 8:51am Hypochromasia MODERATE 12/18/2017 6:11am 12/18/2017 8:51am Poikilocytosis SLIGHT 12/17/2017 6:11am 12/17/2017 8:28am Anisocytosis SLIGHT 12/18/2017 6:11am 12/18/2017 8:51am Red Cell Morphology Comment NORMAL 12/18/2017 6:11am 12/18/2017 8: 51am Urine Color MARILYN H YELLOW 12/16/2017 5:35pm 12/16/2017 6:23pm Urine Clarity HAZY CLEAR 12/16/2017 5:35pm 12/16/2017 6:23pm Urine Specific [place] 1.020 1.010-1.025 12/16/2017 5:35pm 2017 6:23pm Urine pH 5 5 - 7 12/16/2017 5:35pm 12/16/2017 6:23pm Urine Leukocyte Esterase 2+ H NEGATIVE 12/16/2017 5:35pm 12/16/2017 6: 23pm Urine Nitrite POSITIVE H NEGATIVE 12/16/2017 5:35pm 12/16/2017 6:23pm Urine Protein TRACE H NEGATIVE 12/16/2017 5:35pm 12/16/2017 6:23pm Urine Glucose (UA) NEGATIVE NEGATIVE 12/16/2017 5:35pm 12/16/2017 6: 23pm Urine Ketones NEGATIVE NEGATIVE 12/16/2017 5:35pm 12/16/2017 6:23pm Urine Urobilinogen 1 mg/dL 0.2 - 1 12/16/2017 5:35pm 12/16/2017 6:23pm Urine Bilirubin 1+ H NEGATIVE 12/16/2017 5:35pm 12/16/2017 6:23pm Urine Blood 1+ H NEGATIVE 12/16/2017 5:35pm 12/16/2017 6:23pm Urine WBC >50 /HPF H 0-5 12/16/2017 5:35pm 12/16/2017 6:32pm Urine RBC 11-20 /HPF H 0-5 12/16/2017 5:35pm 12/16/2017 6:32pm Urine Bacteria MANY /HPF H NONE 12/16/2017 5:35pm 12/16/2017 6:32pm Urine Epithelial Cells MODERATE /LPF NONE 12/16/2017 5:35pm 12/16/2017 6:32pm Urine Amorphous Sediment FEW FEW 12/16/2017 5:35pm 12/16/2017 6:32pm Urine Mucus MODERATE H RARE 12/16/2017 5:35pm 12/16/2017 6:32pm Urine Test NEGATIVE NEGATIVE 12/16/2017 5:35pm 12/16/2017 6 :23pm Sodium Level 142 mmol/L 136-145 12/23/2017 5:43am 12/23/2017 6:23am Potassium Level 3.3 mmol/L L 3.5-5.1 12/23/2017 5:43am 12/23/2017 6: 23am Chloride Level 101 mmol/L 98-107 12/23/2017 5:43am 12/23/2017 6:23am Influenza Virus Types A,B Antigen NEGATIVE NEGATIVE 12/16/2017 5:37pm 12/16/2017 6:30pm Carbon Dioxide Level 32 mmol/L H 22-29 12/23/2017 5:43am 12/23/2017 6: 23am Anion Gap 12.3 mmol/L 8-16 12/23/2017 5:43am 12/23/2017 6:23am Blood Urea Nitrogen 9 mg/dL 7-26 12/23/2017 5:43am 12/23/2017 6:23am Creatinine 0.59 mg/dL 0.57-1.11 12/23/2017 5:43am 12/23/2017 6:23am BUN/Creatinine Ratio 15 6-25 12/23/2017 5:43am 12/23/2017 6:23am Estimat Glomerular Filtration Rate > 60 ML/MIN 60- 12/23/2017 5:43am 6:23am Ranges were taken from the National Kidney Disease Education Program and the National Kidney Foundation literature. Reference ranges: 60 or greater: Normal 16-59 (for 3 consecutive months): Chronic kidney disease 15 or less: Kidney failure Glucose Level 104 mg/dL 74-118 12/23/2017 5:43am 12/23/2017 6:23am Calcium Level 8.3 mg/dL L 8.4-10.2 12/23/2017 5:43am 12/23/2017 6:23am Iron Level 7 ug/dL L 50-170 12/17/2017 6:12/17/2017 9:55am Total Iron Binding Capacity 386 ug/dL 261-478 12/17/2017 6:2017 9:55am Percent Iron Saturation 2 % L 15-50 12/17/2017 6:12/17/2017 9:55am Transferrin 276 mg/dL 180-382 12/17/2017 6:12/17/2017 9:55am Total Bilirubin 0.3 mg/dL 0.2-1.2 12/19/2017 3:2512/19/2017 4:02am Aspartate Amino Transf (AST/SGOT) 48 IU/L H 5-34 12/19/2017 3:2512/19 4:02am Alanine Aminotransferase (ALT/SGPT) 105 IU/L H 0-55 12/19/2017 3:25 4:02am Total Protein 6.9 g/dL 6.5-8.1 12/19/2017 3:25am 12/19/2017 4:02am Albumin 2.4 g/dL L 3.5-5.0 12/19/2017 3:2512/19/2017 4:02am Globulin 4.5 g/dL H 2.3-3.5 12/19/2017 3:25am 12/19/2017 4:02am Albumin/Globulin Ratio 0.5 L 0.8-2.0 12/19/2017 3:25am 12/19/2017 4: 02am Alkaline Phosphatase 192 IU/L H 40-150 12/19/2017 3:25am 12/19/2017 4: 02am Lipase 19 U/L 8-78 12/16/2017 8:16pm 12/16/2017 8:43pm Vitamin B12 Level 319 pg/mL 213-816 12/17/2017 6:11am 12/17/2017 10: 39am Folate 8.4 ng/mL 7.0-15.4 12/17/2017 6:11am 12/17/2017 10:39am Thyroid Stimulating Hormone (TSH) 0.243 uIU/mL L 0.350-4.940 12/17/2017 6 :11am 12/17/2017 10:13am Microbiology Results Procedure Source Organism/Result Collection Date/Time Result Date/Time Result Status Urine Culture Urine,Clean Catch ESCHERICHIA COLI-ESBL 12/16/2017 5:35pm 8:17am Final Urine Culture Urine,Catheterized ESCHERICHIA COLI-ESBL 12/16/2017 8:16pm 12/18/2017 8:17am Final Blood Culture Blood ESCHERICHIA COLI-ESBL 12/16/2017 8:16pm 12/19/2017 12: 49pm Final Blood Culture Blood NO GROWTH AFTER 72 HOURS 5:20pm 12/22/2017 5:46pm Preliminary Procedures Procedure Status Date Provider(s) Cystoscopy with retrograde pyelography Completed 12/17/[address] of abdomen and pelvis without contrast Active 12/16/17 GÓMEZ CAI REAL TIME TRADER Encounters Encounter Location Arrival/Admit Date Discharge/Depart Date Attending Provider Discharged Inpatient [facility] 12/16/17 9:20pm 12/24/17 2:20pm MARYBEL BAEZ MD
--- OUTSIDE RECORDS SUMMARY | 2018-03-15 08:37 | XMS REPORT ---
Author Author [facility] Address Unknown Phone Unavailable Care Team Providers Care Printer'S Devil Name Role Phone MARYBEL BAEZ Unavailable Unavailable Problems This patient has no known problems. Allergies, Adverse Reactions, Alerts This patient has no known allergies or adverse reactions. Medications This patient has no known medications. Results Test Description Test Time Test Comments Text Results Atomic Results Result Comments CHEST XRAY LINE PLACEMENT [place] [address] Patient Name: JOSH LANDEROS MR #: [id number] : 1970 Age/Sex: 47/F Req #: [id number] Adm Physician: MARYBEL BAEZ MD Ordered by: WENCESLAO MICHAEL MD Report #: [id number] Location: MED/SURG2 Room/Bed: [facility] Procedure: [id number] DX/CHEST XRAY LINE PLACEMENT Exam Date: 12/20/17 Exam Time: 2012 REPORT STATUS: Signed EXAMINATION: CHEST XRAY LINE PLACEMENT INDICATION: COMPARISON: 11/09/2015 FINDINGS: AP view TUBES and LINES: Right PICC in place with tip overlying cavoatrial junction. LUNGS: Low lung volumes. Lungs are clear. There is no evidence of pneumonia or pulmonary edema. PLEURA: No pleural effusion or pneumothorax. HEART AND MEDIASTINUM: Enlarged cardiac silhouette. BONES AND SOFT TISSUES: No acute osseous lesion. Soft tissues are unremarkable. UPPER ABDOMEN : No free air under the diaphragm. IMPRESSION: Right PICC in place with tip overlying cavoatrial junction. No visible pneumothorax. Signed by: Dr. Nabor Ayers MD on 12/20/2017 8:27 PM Dictated By: NABOR AYERS MD 26 Transcribed By: MIRACLE on 12/20/172026 COPY TO: WENCESLAO MICHAEL MD CT ABDOMEN/PELVIS WO [place] [address] Patient Name: JOSH LANDEROS MR #: [id number] : 1970 Age/Sex: 47/F Req #: [id number] Adm Physician: Ordered by: GÓMEZ CAI NP Report # : [id number] Location: ER Room/Bed: Procedure: [id number] CT/CT ABDOMEN/PELVIS WO Exam Date: 12/16/17 Exam Time: 1845 REPORT STATUS: Signed EXAM: CT Abdomen and Pelvis WITHOUT contrast INDICATION: Severe right flank pain. Nausea and vomiting. COMPARISON: None. TECHNIQUE: Abdomen and pelvis were scanned utilizing a multidetector helical scanner from the lung base to the pubic symphysis without administration of IV contrast. Absence of intravenous contrast decreases sensitivity for detection of focal lesions and vascular pathology. Coronal and sagittal reformations were obtained. Routine protocol was performed. IV CONTRAST: None. ORAL CONTRAST: Water RADIATION DOSE: Total DLP: 748.55No change from CT BRAIN WO with report dated 06/06/2012 8:21 AM. mGy*cm Estimated effective dose: (DLP x 0.015 x size factor) mSv COMPLICATIONS: None FINDINGS: LINES and TUBES: None. LOWER THORAX: Unremarkable HEPATOBILIARY: No focal hepatic lesions. No biliary ductal dilation. GALLBLADDER: Surgically absent. SPLEEN: No splenomegaly. PANCREAS: No focal masses or ductal dilatation. ADRENALS: No adrenal nodules KIDNEYS/URETERS: Mild right sided hydroureteronephrosis. 5 mm calcification in the posterior right hemipelvis on image 155 series 3 corresponding to sagittal image 72, concerning for an obstructing UVJ calculus. No cystic or solid mass lesions. 2 punctate calculi in the lower pole of the right kidney. Bilateral perinephric stranding, right greater than left. GI TRACT: Postoperative changes involving the stomach and proximal small bowel suggestive of status post gastric bypass. PELVIC ORGANS/BLADDER: Unremarkable. LYMPH NODES: No lymphadenopathy. VESSELS: Unremarkable. PERITONEUM / RETROPERITONEUM: No free air or fluid. BONES: Degenerative disc disease at L5-S1. SOFT TISSUES: Unremarkable. IMPRESSION: 1. Findings suggestive of 5 mm obstructing calculus right UVJ resulting in mild right hydroureteronephrosis. Signed by: Dr. Felipe Herbert M.D. on 12/16/2017 6:55 PM Dictated By: FLETCHER HERBERT MD, MD 54 Transcribed By: MIRACLE on 12/16/171854 COPY TO: GÓMEZ CAI NP
[2018-03-15] MEDS ORDERED: SODIUM CHLORIDE 0.9% 1000ML 1,000 ML IV SCH ×2 (09:30→12:06)
[2018-03-15] MEDS ORDERED: SODIUM CHLORIDE 0.9% 1000ML 1,000 ML IV ONE (09:30)
[2018-03-15 10:01] LABS: BASOPHILS % 0.3 % (0.0-1.0); HEMATOCRIT 30.5 % (34.2-44.1); HEMOGLOBIN 9.8 g/dL (12.0-16.0); LYMPHOCYTES # (AUTO) 1.2 (1.0-3.2); MEAN CORPUSCULAR HEMOGLOBIN 28.1 pg (28-32); MEAN CORPUSCULAR HGB CONC 32.1 g/dL (31-35); MEAN CORPUSCULAR VOLUME 87.4 fL (81-99); MONOCYTES # (AUTO) 0.4 (0.2-0.8); MONOCYTES % 5.7 % (4.4-11.3); NEUTROPHILS # (AUTO) 4.5 (2.1-6.9); NEUTROPHILS % 74.5 % (38.7-80.0); PLATELET COUNT 238 x10e3/uL (140-360); RED BLOOD COUNT 3.49 x10e6/uL (3.6-5.1); RED CELL DISTRIBUTION WIDTH 17.7 % (11.7-14.4)
--- NOTE | 2018-03-15 10:01 | Diagnostic Imaging Report ---
Exam: Head CT without contrast History: Altered mental status Comparison studies: None. Previous head CT of 06/05/2012 is unavailable on the PACS for comparison at the time of dictation. Technique: Axial images were obtained from the skull base to the vertex. Coronal and sagittal images reconstructed from the axial data. Intravenous contrast: None Findings: Scalp: No abnormalities. Bones: No fractures, blastic or lytic lesions. Brain sulci: Appropriate for age. Ventricles: Normal in size and configuration. No hydrocephalus. Extra-axial spaces: No masses, no fluid collection. Parenchyma: No abnormal densities. No masses, acute hemorrhage, acute or chronic vascular insults. Sellar/suprasellar region: No abnormalities. Craniocervical junction: Patent foramen magnum. No Chiari one malformation. IMPRESSION: No abnormalities. Signed by: Dr. Dwain Garnett M.D. on 03/15/2018 9:57 AM
[2018-03-15 10:02] LABS: AMPHETAMINES SCREEN,URINE NEGATIVE (NEGATIVE); BENZODIAZEPINES SCREEN,URINE NEGATIVE (NEGATIVE); PHENCYCLIDINE SCREEN,URINE NEGATIVE (NEGATIVE)
--- NOTE | 2018-03-15 10:08 | Diagnostic Imaging Report ---
PROCEDURE: CHEST SINGLE (PORTABLE) COMPARISON: 12/20/2017 chest x-ray INDICATIONS: AMS FINDINGS: LUNGS: No consolidations or edema. PLEURA: No effusions or pneumothorax. HEART \T\ MEDIASTINUM: The heart is within normal size-limits. BONES \T\ SOFT TISSUES: No acute findings. CONCLUSION: No acute thoracic abnormality. Byron Boyle D.O. Dictated by: Byron Boyle D.O. on 03/15/2018 at 10:10 Electronically approved by: Byron Boyle D.O. on 03/15/2018 at 10:10
[2018-03-15 10:11] LABS: CLARITY,URINE CLOUDY (CLEAR); COLOR,URINE YELLOW (YELLOW)
[2018-03-15 10:12] LABS: BILIRUBIN,URINE 2+ (NEGATIVE); KETONES,URINE NEGATIVE (NEGATIVE); LEUKOCYTE ESTERASE ,URINE TRACE (NEGATIVE); NITRITE,URINE NEGATIVE (NEGATIVE); PROTEIN,URINE DIPSTICK 2+ (NEGATIVE); URINE UROBILINOGEN 0.2 mg/dL (0.2 - 1)
[2018-03-15 10:16] LABS: ALANINE AMINOTRANSFERASE 28 IU/L (0-55); ALBUMIN 3.7 g/dL (3.5-5.0); ALKALINE PHOSPHATASE 137 IU/L (40-150); ANION GAP 13.1 mmol/L (8-16); BLOOD UREA NITROGEN 12 mg/dL (7-26); BUN/CREATININE RATIO 16 (6-25); CALCIUM 9.3 mg/dL (8.4-10.2); CARBON DIOXIDE 28 mmol/L (22-29); CHLORIDE 103 mmol/L (98-107); CREATINE KINASE 171 IU/L (29-168); CREATININE, SERUM 0.74 mg/dL (0.57-1.11); EST GLOMERULAR FILTRATION RATE > 60 ML/MIN (60-); GLUCOSE 120 mg/dL (74-118); POTASSIUM 3.1 mmol/L (3.5-5.1); SODIUM 141 mmol/L (136-145)
[2018-03-15] MEDS ORDERED: POTASSIUM CHLORIDE 20 MEQ TAB CR PO STA (10:21)
[2018-03-15 10:34] LABS: BACTERIA,URINE FEW /HPF; EPITHELIAL CELLS,URINE MODERATE /LPF; RBC,URINE 21-50 /HPF (0-5); WBC,URINE (MAN) 0-5 /HPF (0-5)
[2018-03-15 13:31] VITALS: BP 159/79
[2018-03-15 14:00] VITALS: BP 159/79
[2018-03-15 15:58] VITALS: BP 159/79
[2018-03-15] MEDS ORDERED: QUETIAPINE FUMARATE 25 MG TAB PO PRN (16:15)
[2018-03-15 17:08] VITALS: BP 157/78
--- NOTE | 2018-03-15 19:37 | History and Physical ---
This 47-year-old female comes in with acute confusion. HISTORY OF PRESENT ILLNESS: Ms. Meghan Redmond is a 47-year-old lady with a history of chronic pain management. She was in her usual state of health until the patient started to have some acute mental status changes with acute abnormal behavior. The patient started with not sleeping for the last 2 days and has been taking all of her medications. Over the last 2 days, the patient has been very confused and has been having tangential thoughts and unrecognizable speech at some times, and confusion. PAST MEDICAL HISTORY: History of chronic pain syndrome, history of reflux disease, history of insomnia and history of reflux esophagitis and nausea. HOME MEDICATIONS: Suboxone 8 mg sublingually 3 times a day, omeprazole 40 mg daily, Lasix 20 mg, gabapentin 600 mg daily, multivitamins 1 tablet daily, Zofran 8 mg q.i.d. p.r.n. PAST SURGICAL HISTORY: History of left shoulder surgery, history of hysterectomy, history of cholecystectomy, gastric bypass too. REVIEW OF SYSTEMS: Unable to obtain because the patient is confused. PHYSICAL EXAMINATION VITAL SIGNS: Temperature 98.6, pulse 106, respirations 18, blood pressure 157/78. HEENT: Normocephalic, atraumatic. Pupils react to light and accommodation. CVS: S1 and S2 normal. Regular rate and rhythm. ABDOMEN: Tenderness in the lower abdomen. EXTREMITIES: No cyanosis, clubbing or edema. LABORATORY DATA: White count 6.10, hemoglobin 9.8, hematocrit 30.5. Chemistries show potassium 3.1, ALT and AST normal, troponin was negative. CK was 171. 3.8. Toxicology: All negative. Urine positive for white count, RBCs 21.50, negative for nitrites and urine specific gravity was 1.030. ASSESSMENT: Acute encephalopathy, possibly infectious, possibly multiple drug induced. The patient also taken Imipramine 120 mg, according to the bottle. PLAN: The plan is to go ahead and give her IV fluids. Give her also IV Rocephin. Culture the urine. Also, consult with Dr. Casiano has been done. The patient does have some hypokalemia. Will correct that. Also, her CK, will go ahead and increase the fluid to 120 mL an hour for the next 24 hours. Further recommendations depending on clinical course and also recommendation of Dr. Casiano. Will also do urine culture. Job#: [id number] LUCY
--- NOTE | 2018-03-15 19:40 | Diagnostic Imaging Report ---
History:Psychosis Comparison studies: Head CT's on 06/05/2012 and on 03/15/2018 at 0940 hours Technique: Axial images were obtained from the skull base to the vertex. Coronal and sagittal images reconstructed from the axial data. Intravenous contrast: None Findings: Scalp/skull: No abnormalities. No fractures, blastic or lytic lesions. Extra-axial spaces: No masses. No fluid collections. Brain sulci: Appropriate for age. Ventricles: Normal in size and configuration. No hydrocephalus. Parenchyma: No abnormal densities. No masses, hemorrhage, acute or chronic cortical vascular insults. Sellar/suprasellar region: No abnormalities Craniocervical junction: Patent foramen magnum. No Chiari one malformation. IMPRESSION: 1. No abnormalities 2. No changes when compared to the previous head CT on 06/09 and 03/15/2018 Signed by: Dr. Paul Guevara M.D. on 03/15/2018 7:36 PM
[2018-03-15 20:00] VITALS: BP 157/78
[2018-03-15] MEDS: QUETIAPINE FUMARATE 25 MG TAB PO SCH (20:02)
[2018-03-15] MEDS: LORAZEPAM 0.5 MG TAB PO PRN (20:02)
[2018-03-15] MEDS: CEFTRIAXONE SOD 1 GM VIAL IV SCH (20:15)
--- NOTE | 2018-03-15 20:41 | Consultation ---
DATE OF CONSULTATION: March 15, 2018 PSYCHIATRIC CONSULTATION REASON FOR CONSULTATION: To evaluate the patient's confusion and psychosis. HISTORY OF PRESENT ILLNESS: The patient is a 47-year-old female admitted to the hospital with altered mental status and confusion. Psychiatric consultation is called to evaluate the patient's psychosis. As per the medical record, the patient's reports exhibiting some delay with answers, not aware of her surroundings. She answers questions inappropriately. Family members at bedside. Upon evaluation today, the patient is found to be in her room surrounded by her family members and her . The patient is alert, awake and oriented to self and place. She does not know the month. She unable to state the year. She appears to be internally preoccupied, somewhat psychotic. She denies any depression. She denies any suicidal ideation. She denies any hallucinations. She is not agitated at this time. I spoke to the patient's who is in the room. The reports that the patient has been confused for the last few days. She has never exhibited symptoms seen today for the past 25 years of being to each other. She does have history of abusing opioids and pain medication. She does take Suboxone at home and is addicted to that and pain medication as well. As per the nursing staff, the patient has not shown signs of nausea, vomiting or diarrhea. PAST MEDICAL HISTORY: The patient denies any past psychiatric history. She denies past suicidal thoughts. She denies alcohol and drug use. FAMILY HISTORY: Unknown. SOCIAL HISTORY: The patient lives with her . MENTAL STATUS EXAM: The patient is a middle-aged female. She is alert, awake and oriented to self and place. She is somewhat confused, internally preoccupied. She is somewhat psychotic. She denies any suicidal or homicidal ideation. She denies any hallucinations. She is not agitated. Her insight and judgment are limited to impaired. CURRENT MEDICATIONS: Sodium chloride. LABORATORY DATA: WBC 6.10, RBCs 3.49, hemoglobin 9.8, hematocrit 30.5, platelets 238,000. Sodium 141, potassium 3.1, chloride 198, CO2 of 28, BUN 12, creatinine 0.74. ASSESSMENT: Unspecified psychosis; opiate abuse. PLAN: 1. Order CT scan for first time psychosis. 2. Add Seroquel 50 mg p.o. nightly. 3. Add Seroquel 50 mg p.o. q.6 h. p.r.n. 4. Add Ativan 0.5 mg p.o. q.6 h. p.r.n. for anxiety. 5. Will look out for any signs of withdrawal. 6. Add p.r.n. Suboxone. 7. Monitor for agitation and psychosis. Thank you for this consultation. Dictated by: LORI Celis Job#: [id number] GH
[2018-03-15 20:54] VITALS: BP 168/87
[2018-03-15] MEDS: SODIUM CHLORIDE 0.9% 1000ML 1,000 ML IV SCH (21:39)
[2018-03-15] MEDS ORDERED: HOME MEDICATION--PATIENTS OWN ONE (21:58)
[2018-03-15] MEDS: BUPRENORPHINE HCL SL SCH (22:04)
[2018-03-15] MEDS: NALOXONE HCL SL SCH (22:04)
[2018-03-16] VITALS (8 sets, daily range): BP systolic 172–192; BP diastolic 79–99
[2018-03-16] MEDS: LORAZEPAM 0.5 MG TAB PO PRN (03:43)
[2018-03-16] MEDS: CEFTRIAXONE SOD 1 GM VIAL IV SCH (06:34)
[2018-03-16] MEDS: SODIUM CHLORIDE 0.9% 1000ML 1,000 ML IV SCH ×3 (06:34→19:35)
[2018-03-16 06:56] LABS: BASOPHILS % 0.4 % (0.0-1.0); EOSINOPHILS % 0.1 % (0.0-6.0); HEMATOCRIT 30.9 % (34.2-44.1); HEMOGLOBIN 9.9 g/dL (12.0-16.0); LYMPHOCYTES # (AUTO) 2.5 (1.0-3.2); LYMPHOCYTES % 26.2 % (18.0-39.1); MEAN CORPUSCULAR HEMOGLOBIN 28.2 pg (28-32); MONOCYTES # (AUTO) 0.8 (0.2-0.8); MONOCYTES % 8.8 % (4.4-11.3); NEUTROPHILS # (AUTO) 6.1 (2.1-6.9); NEUTROPHILS % 64.2 % (38.7-80.0); PLATELET COUNT 217 x10e3/uL (140-360); RED BLOOD COUNT 3.51 x10e6/uL (3.6-5.1); RED CELL DISTRIBUTION WIDTH 17.8 % (11.7-14.4)
[2018-03-16 07:12] LABS: ANION GAP 12.2 mmol/L (8-16); BLOOD UREA NITROGEN 5 mg/dL (7-26); BUN/CREATININE RATIO 8 (6-25); CARBON DIOXIDE 27 mmol/L (22-29); CHLORIDE 104 mmol/L (98-107); CREATININE, SERUM 0.62 mg/dL (0.57-1.11); EST GLOMERULAR FILTRATION RATE > 60 ML/MIN (60-); GLUCOSE 101 mg/dL (74-118); LIPASE 17 U/L (8-78); MAGNESIUM 1.5 MG/DL (1.3-2.1); POTASSIUM 3.2 mmol/L (3.5-5.1); SODIUM 140 mmol/L (136-145)
[2018-03-16 07:39] LABS: FREE THYROXINE INDEX 2.3424 (1.4-3.8)
[2018-03-16] MEDS ORDERED: LORAZEPAM 0.5 MG TAB PO PRN (08:00)
[2018-03-16] MEDS ORDERED: HOME MEDICATION--PATIENTS OWN ONE ×3 (10:20→20:03)
[2018-03-16] MEDS: BUPRENORPHINE HCL SL SCH ×3 (10:23→20:15)
[2018-03-16] MEDS: NALOXONE HCL SL SCH ×3 (10:23→20:15)
[2018-03-16] MEDS ORDERED: POTASSIUM CHLORIDE 10 MEQ TABCR PO NR (10:30)
[2018-03-16] MEDS: CLONIDINE HCL 0.1 MG TAB PO PRN ×2 (14:06→20:15)
[2018-03-16] MEDS: QUETIAPINE FUMARATE 25 MG TAB PO SCH (20:14)
[2018-03-16] MEDS: ZOLPIDEM TARTRATE 5 MG TAB PO PRN (20:15)
[2018-03-17] MEDS: SODIUM CHLORIDE 0.9% 1000ML 1,000 ML IV SCH ×3 (04:20→19:34)
[2018-03-17] MEDS ORDERED: ZIPRASIDONE 20 MG VIAL IM STA (06:38)
[2018-03-17] MEDS ORDERED: HOME MEDICATION--PATIENTS OWN ONE ×3 (09:11→20:36)
[2018-03-17] MEDS: BUPRENORPHINE HCL SL SCH ×3 (09:22→20:48)
[2018-03-17] MEDS: NALOXONE HCL SL SCH ×3 (09:22→20:48)
[2018-03-17] MEDS: NITROFURANTOIN MACROCRYSTALS 100 MG CAP PO SCH ×2 (09:22→21:00)
[2018-03-17] MEDS ORDERED: ZIPRASIDONE 20 MG VIAL IM PRN (11:15)
[2018-03-17] MEDS ORDERED: LORAZEPAM INJ 2 MG/ML VIAL IM PRN ×2 (11:15→22:00)
[2018-03-17 11:47] VITALS: BP 157/108
[2018-03-17 13:13] VITALS: BP 157/108
[2018-03-17] MEDS: CLONIDINE HCL 0.1 MG TAB PO PRN ×2 (13:21→21:01)
[2018-03-17] MEDS: QUETIAPINE FUMARATE 25 MG TAB PO SCH ×2 (14:08→21:00)
[2018-03-17 16:01] VITALS: BP 186/107
[2018-03-17 20:00] VITALS: BP 161/71
[2018-03-17 20:40] VITALS: BP 161/71
[2018-03-17] MEDS: ZOLPIDEM TARTRATE 5 MG TAB PO PRN (21:00)
[2018-03-17] MEDS: LORAZEPAM 0.5 MG TAB PO SCH (21:00)
[2018-03-18] MEDS: LORAZEPAM 0.5 MG TAB PO SCH ×3 (03:13→21:05)
[2018-03-18] MEDS: SODIUM CHLORIDE 0.9% 1000ML 1,000 ML IV SCH ×2 (04:15→13:40)
[2018-03-18 08:00] VITALS: BP 158/94
[2018-03-18 08:15] VITALS: BP 158/94
[2018-03-18] MEDS ORDERED: NALOXONE HCL SL SCH (09:00)
[2018-03-18] MEDS: QUETIAPINE FUMARATE 25 MG TAB PO SCH ×3 (09:00→21:06)
[2018-03-18] MEDS ORDERED: [UNRECOGNIZED DRUG - OTHER] SL SCH (09:00)
[2018-03-18] MEDS ORDERED: BUPRENORPHINE HCL SL SCH (09:00)
[2018-03-18] MEDS ORDERED: SUBOXONE SL SCH ×2 (09:00→21:00)
[2018-03-18] MEDS: NITROFURANTOIN MACROCRYSTALS 100 MG CAP PO SCH ×2 (09:00→16:00)
[2018-03-18] MEDS ORDERED: HOME MEDICATION--PATIENTS OWN ONE (10:17)
[2018-03-18 12:00] VITALS: BP 167/93
[2018-03-18 16:00] VITALS: BP 166/102
[2018-03-18] MEDS: SUBOXONE SL SCH (22:15)
[2018-03-19] MEDS: LORAZEPAM 0.5 MG TAB PO SCH ×3 (03:45→21:44)
[2018-03-19 06:09] LABS: BASOPHILS # (AUTO) 0.1 (0.0-0.1); BASOPHILS % 0.8 % (0.0-1.0); EOSINOPHILS # (AUTO) 0.1 (0.0-0.4); EOSINOPHILS % 2.1 % (0.0-6.0); HEMATOCRIT 32.9 % (34.2-44.1); HEMOGLOBIN 10.6 g/dL (12.0-16.0); LYMPHOCYTES # (AUTO) 2.4 (1.0-3.2); LYMPHOCYTES % 38.2 % (18.0-39.1); MEAN CORPUSCULAR HEMOGLOBIN 28.3 pg (28-32); MEAN CORPUSCULAR HGB CONC 32.2 g/dL (31-35); MEAN CORPUSCULAR VOLUME 87.7 fL (81-99); MONOCYTES # (AUTO) 0.6 (0.2-0.8); MONOCYTES % 9.1 % (4.4-11.3); NEUTROPHILS # (AUTO) 3.1 (2.1-6.9); NEUTROPHILS % 49.6 % (38.7-80.0); PLATELET COUNT 217 x10e3/uL (140-360); RED BLOOD COUNT 3.75 x10e6/uL (3.6-5.1); RED CELL DISTRIBUTION WIDTH 17.3 % (11.7-14.4)
[2018-03-19 06:43] LABS: ANION GAP 15.3 mmol/L (8-16); BLOOD UREA NITROGEN 17 mg/dL (7-26); BUN/CREATININE RATIO 26 (6-25); CALCIUM 9.3 mg/dL (8.4-10.2); CARBON DIOXIDE 27 mmol/L (22-29); CHLORIDE 102 mmol/L (98-107); CREATINE KINASE 104 IU/L (29-168); CREATININE, SERUM 0.66 mg/dL (0.57-1.11); EST GLOMERULAR FILTRATION RATE > 60 ML/MIN (60-); GLUCOSE 88 mg/dL (74-118); POTASSIUM 3.3 mmol/L (3.5-5.1); SODIUM 141 mmol/L (136-145)
[2018-03-19 08:00] VITALS: BP 156/83
[2018-03-19 08:10] VITALS: BP 156/83
[2018-03-19] MEDS ORDERED: POTASSIUM CHLORIDE 20 MEQ TAB CR PO STA (08:58)
--- NOTE | 2018-03-19 09:03 | Progress Note ---
DATE: March 18, 2018 The patient was evaluated and events noted. The patient is in the room with her and other family members. The patient is doing better. She is calm, less confused and less psychotic. The patient denies any hallucinations. She denies any depression or anxiety. She is not restless. She denies any suicidal ideation. She denies any side effects of her medications. As per the , the patient is doing much better compared to Sunday and Sunday. On Sunday, psychiatry received a call from the nursing staff to inform us that the patient is very agitated and combative, and having some tremors. She was placed on scheduled Ativan. Her Suboxone was reduced. The patient received p.r.n. IM Ativan. Last dose was this morning. The patient is getting better and improving with the current dose. ASSESSMENT: Unspecified psychosis; opiate abuse. PLAN: Continue Ativan 1 mg p.o. q.6 h. Continue Seroquel 50 mg p.o. 3 times a day. Continue Ativan 2 mg IM q.4 h. p.r.n. Continue Ambien 10 mg p.o. at bedtime p.r.n. Continue Seroquel 50 mg p.o. q.6 h. p.r.n. Continue Geodon 10 mg IM q.6 h. p.r.n. Monitor for agitation and withdrawal. The patient will need 3 more days of observation as per psych recommendations. DICTATED BY LORI MORALES Job#: [id number] UBALDO
[2018-03-19 09:30] LABS: ALBUMIN 3.4 g/dL (3.5-5.0); BILIRUBIN,DIRECT 0.2 mg/dL (0.0-0.5)
[2018-03-19] MEDS: QUETIAPINE FUMARATE 25 MG TAB PO SCH ×3 (10:00→21:44)
[2018-03-19] MEDS: SUBOXONE SL SCH ×2 (10:00→21:44)
[2018-03-19] MEDS: NITROFURANTOIN MACROCRYSTALS 100 MG CAP PO SCH ×2 (10:00→16:00)
--- NOTE | 2018-03-19 15:45 | Progress Note ---
DATE: March 19, 2018 Patient was not in her room. She was out for ultrasound as per nursing staff. Patient has been pleasant, calm and ambulatory. She has not received any p.r.n. IM medications since yesterday in the morning. She appears to be taking her medication as scheduled and no serious side effects seen. Will reduce and titrate the medication down today as she is tolerating the medication. ASSESSMENT: Unspecified psychosis and opiate abuse. PLAN 1. Reduce Ativan 1 mg three times a day to q.12. 2. Continue Seroquel 50 mg p.o. three times a day. 3. Continue Ativan p.r.n. IM. 4. Continue Ambien p.r.n. bedtime. 5. Continue Seroquel p.r.n. p.o. 6. Continue Geodon p.r.n. IM. 7. Monitor for agitation and withdrawal. DICTATED BY LORI MORALES Job#: [id number]
[2018-03-19 16:00] VITALS: BP 149/92
--- NOTE | 2018-03-19 17:11 | Diagnostic Imaging Report ---
PROCEDURE:US LIVER COMPARISON:[facility], CT, CT ABDOMEN/PELVIS WO, 12/16/2017, 18:29. INDICATIONS:HIGH AMMONIA LEVEL TECHNIQUE: Arredondo-scale and color doppler transverse and longitudinal images of the right upper quadrant of the abdomen were obtained. FINDINGS: Exam limited by patient's large body habitus and overlying bowel gas. Liver: 12.6 cm in right mid-clavicular line. Normal echogenicity. Normal contour. No masses. Main portal vein: 0.8 cm, hepatopetal flow Gallbladder: Absent Common Bile Duct: 0.4 cm Sonographic Velarde's sign: Negative Right kidney: 11.0 cm. Normal echogenicity. No solid masses or stones. Mild pelviectasis. The Pancreas: Obscured by overlying bowel gas.. Inferior vena cava: Patent Aorta: Within normal limits Ascites: None in the right upper quadrant of the abdomen. CONCLUSION: 1. Limited exam, as described above. 2. Mild pelviectasis. Sharif Garcia M.D. Dictated by: Sahrif Garcia M.D. on 03/19/2018 at 17:14 Electronically approved by: Sharif Garcia M.D. on 03/19/2018 at 17:14
[2018-03-19] MEDS: LACTULOSE SYRUP 20 GM/30 ML UDC PO PRN (18:38)
[2018-03-19 20:04] VITALS: BP 120/73
[2018-03-20 00:27] VITALS: BP 127/67
[2018-03-20 04:20] VITALS: BP 131/74
[2018-03-20] MEDS: LACTULOSE SYRUP 20 GM/30 ML UDC PO PRN ×2 (04:42→15:03)
[2018-03-20] MEDS: LORAZEPAM 0.5 MG TAB PO SCH ×2 (08:49→21:03)
[2018-03-20] MEDS: NITROFURANTOIN MACROCRYSTALS 100 MG CAP PO SCH ×2 (08:49→17:11)
[2018-03-20] MEDS: SUBOXONE SL SCH ×2 (08:49→21:03)
[2018-03-20] MEDS: QUETIAPINE FUMARATE 25 MG TAB PO SCH ×3 (08:49→21:03)
[2018-03-20 09:20] VITALS: BP 178/91
[2018-03-20 09:43] VITALS: BP 178/91
[2018-03-20 12:00] VITALS: BP 122/69
--- NOTE | 2018-03-20 17:07 | Progress Note ---
DATE: March 20, 2018 PSYCHIATRIC PROGRESS NOTE Patient evaluated and events noted. She is found in the room with her . She is alert, awake and oriented to situation. She is doing much better. She is not confused. She is not agitated or combative. She denies any depression. She reports intermittent anxiety due to her 's working schedule and general stressors. She denies any suicidal ideation. She denies any hallucinations. She denies any side effects from medication. She has not received any p.r.n. IM medications. There are no signs of withdrawal. The patient at this time is cleared from the psychiatry standpoint. ASSESSMENT: Unspecified psychosis and opiate abuse. PLAN 1. Script was written for Ativan 1 mg twice a day for 2 days and to taper it to Ativan 0.5 mg p.o. q.12 h. for 3 days. 2. Script was written for Seroquel 50 mg p.o. 3 times a day. 3. Recommend the patient to follow up with outpatient psychiatry for supportive therapy. 4. Discussed with nursing staff. Dictated by: LORI Celis Job#: [id number]
[2018-03-20 20:00] VITALS: BP 152/85
[2018-03-21] VITALS: BP 123/56
[2018-03-21] MEDS: LACTULOSE SYRUP 20 GM/30 ML UDC PO PRN (00:36)
[2018-03-21 04:00] VITALS: BP_SYST 101; BP_SYST 130; BP_DIAS 58; BP_DIAS 83
[2018-03-21] MEDS ORDERED: ATIVAN1 MG PO (09:40)
[2018-03-21] MEDS ORDERED: SEROQUEL25 MG PO (09:41)
== END 2018-03-21 09:59 | disposition home or self-care (01) | DRG 896 ==
LOC: ER 08:33 → ERHOLD 12:59 → IMCU 13:11 → OBSVTOIN 16:15 → MED/SURG2 20:21
PROVIDERS: ADMIT Family Medicine; ATTEND Family Medicine
DX: F11.151 Opioid abuse with opioid-induced psychotic disorder with hallucinations (principal); G92 Toxic encephalopathy; N39.0 Urinary tract infection, site not specified; G89.4 Chronic pain syndrome; G47.00 Insomnia, unspecified; E87.6 Hypokalemia; I10 Essential (primary) hypertension; D64.9 Anemia, unspecified; F41.8 Other specified anxiety disorders; T40.2X5A Adverse effect of other opioids, initial encounter
CPT/HCPCS: 36415; 70450; 71045; 76705; 80048; 80053; 80076; 80307; 81001; 82140; 82550; 82553; 83690; 83735; 83880; 84436; 84443; 84479; 84484; 85025; 87086; 93005; 99284; J0696; J2060; J3486; J7030

== ENCOUNTER 2019-12-03 08:09 | Emergency (ER) | payer MEDICARE ==
[~2019-12-03] VITALS: Ht 165.1 cm; Wt 102.1 kg
[~2019-12-03 08:09] MED LIST changes: +ATIVAN1 MG PO; +SEROQUEL25 MG PO
[2019-12-03] MEDS ORDERED: KETOROLAC TROMETHAMINE 30 MG/ML VIAL IV STA (08:14)
[2019-12-03] MEDS ORDERED: SODIUM CHLORIDE 0.9% 1000ML 1,000 ML IV STA (08:14)
[2019-12-03] MEDS ORDERED: ONDANSETRON HCL INJ 2MG/ML 2ML 2 MG/ML VIAL IV STA (08:14)
[2019-12-03 09:03] LABS: BASOPHILS % 0.6 % (0.0-1.0); EOSINOPHILS % 0.5 % (0.0-6.0); HEMATOCRIT 35.7 % (34.2-44.1); HEMOGLOBIN 11.1 g/dL (12.0-16.0); LYMPHOCYTES # (AUTO) 1.6 (1.0-3.2); LYMPHOCYTES % 25.2 % (18.0-39.1); MEAN CORPUSCULAR HEMOGLOBIN 28.8 pg (28-32); MEAN CORPUSCULAR HGB CONC 31.1 g/dL (31-35); MEAN CORPUSCULAR VOLUME 92.5 fL (81-99); MONOCYTES # (AUTO) 0.3 (0.2-0.8); MONOCYTES % 5.5 % (4.4-11.3); NEUTROPHILS # (AUTO) 4.2 (2.1-6.9); PLATELET COUNT 245 x10e3/uL (140-360); RED BLOOD COUNT 3.86 x10e6/uL (3.6-5.1); RED CELL DISTRIBUTION WIDTH 14.6 % (11.7-14.4)
[2019-12-03 09:22] LABS: CLARITY,URINE TURBID (CLEAR); COLOR,URINE ORANGE (YELLOW)
[2019-12-03 09:23] LABS: BILIRUBIN,URINE SMALL (NEGATIVE); KETONES,URINE TRACE (NEGATIVE); LEUKOCYTE ESTERASE ,URINE SMALL (NEGATIVE); NITRITE,URINE POSITIVE (NEGATIVE); PROTEIN,URINE DIPSTICK 2+ (NEGATIVE); URINE UROBILINOGEN 1 mg/dL (0.2 - 1)
[2019-12-03 09:25] LABS: ALANINE AMINOTRANSFERASE 26 IU/L (0-55); ALBUMIN 3.8 g/dL (3.5-5.0); ALBUMIN/GLOBULIN RATIO 0.9 (0.8-2.0); ALKALINE PHOSPHATASE 151 IU/L (40-150); ANION GAP 16.4 mmol/L (8-16); BLOOD UREA NITROGEN 13 mg/dL (7-26); BUN/CREATININE RATIO 14 (6-25); CALCIUM 8.9 mg/dL (8.4-10.2); CARBON DIOXIDE 24 mmol/L (22-29); CHLORIDE 101 mmol/L (98-107); CREATININE, SERUM 0.93 mg/dL (0.57-1.11); EST GLOMERULAR FILTRATION RATE > 60 ML/MIN (60-); GLUCOSE 82 mg/dL (74-118); POTASSIUM 3.4 mmol/L (3.5-5.1); SODIUM 138 mmol/L (136-145)
[2019-12-03 09:27] LABS: BACTERIA,URINE MANY /HPF; EPITHELIAL CELLS,URINE MODERATE /LPF; RBC,URINE 0-5 /HPF (0-5); WBC,URINE (MAN) 21-50 /HPF (0-5)
[2019-12-03] MEDS ORDERED: MEROPENEM 1GM 100 ML IV ONE (09:30)
--- NOTE | 2019-12-03 09:30 | Diagnostic Imaging Report ---
CT of the abdomen and pelvis, without contrast, 12/03/2019. History: Left abdominal pain. Comparison: 12/16/2017. Technique: Multidetector CT scanning of the abdomen and pelvis was performed from the level of the lung bases to the inferior pubic rami without intravenous or oral contrast. Coronal and sagittal multiplanar reformations were obtained. RADIATION DOSE: Total DLP: 952 mGy*cm Dose modulation, iterative reconstruction, and/or weight based adjustment of the mA/kV was utilized to reduce the radiation dose to as low as reasonably achievable. Discussion: Examination is limited without contrast. Lung bases: No visualized abnormalities. Abdomen: A punctate calcification is present in the lower pole of the right kidney. No stones are seen on the left. There is no hydronephrosis, perinephric fat stranding, or ureteral dilatation. The liver, biliary tree, spleen, pancreas, and adrenal glands are unremarkable. Cholecystectomy clips are present. The abdominal aorta is within normal limits. Surgical changes are again noted involving the stomach and proximal small bowel. There is no bowel dilatation. There is no evidence of adenopathy or free fluid. Pelvis: The bladder is unremarkable. The uterus and adnexa are not visualized. Small right pelvic calcifications are present unchanged in appearance. There is no evidence of free fluid or adenopathy. Bones and soft tissues: Degenerative changes are present throughout the lumbar spine without evidence of lytic or sclerotic lesion. There is grade 1 anterolisthesis of L3 on L4 without evidence of spondylolysis. IMPRESSION: 1. Tiny nonobstructing right renal calculus. No evidence of nephrolithiasis or hydronephrosis on the left. 2. Status post cholecystectomy, gastric bypass, and hysterectomy. Signed by: Sunil Holt on 12/03/2019 9:28 AM
[2019-12-03 10:32] LABS: PLATELET MORPHOLOGY COMMENT NORMAL
== END 2019-12-03 10:26 | disposition home or self-care (01) ==
LOC: ER 08:09
DX: R30.0 Dysuria (principal); N10 Acute pyelonephritis; N12 Tubulo-interstitial nephritis, not specified as acute or chronic; N39.0 Urinary tract infection, site not specified
CPT/HCPCS: 36415; 74176; 80053; 81001; 85025; 87086; 87186; 99284; J1885; J2185; J2405; J7030

== ENCOUNTER 2022-08-21 19:20 | Emergency (ER) | payer MEDICARE, OTHER ==
[~2022-08-21] VITALS: Ht 154.9 cm; Wt 86.2 kg
[2022-08-21] MEDS ORDERED: CEFDINIR300 MG PO (20:03)
[2022-08-21] MEDS ORDERED: LIDOCAINE HCL 1% LOCAL INJ 20 ML VIAL ONE (20:06)
[2022-08-21] MEDS ORDERED: TETANUS/DIPHTHERIA TOX ADULT 0.5 ML SYR IM ONE (20:15)
[2022-08-21] MEDS ORDERED: TETANUS/DIPHTHERIA TOX ADULT 0.5 ML SYR ONE (20:23)
[2022-08-21 20:30] VITALS: BP 101/55
== END 2022-08-21 20:30 | disposition home or self-care (01) ==
LOC: FSED 19:25
DX: S91.311A Laceration without foreign body, right foot, initial encounter (principal); W26.0XXA Contact with knife, initial encounter; Y92.89 Other specified places as the place of occurrence of the external cause; G62.9 Polyneuropathy, unspecified; F32.A Depression, unspecified; K21.9 Gastro-esophageal reflux disease without esophagitis; Z87.442 Personal history of urinary calculi; Z98.84 Bariatric surgery status
CPT/HCPCS: 12002; 90471; 90714; 99283; J2001

== ENCOUNTER → 2023-12-05 | Outpatient (REF) | payer OTHER ==
[~2023-12-05] MED LIST changes: +CEFDINIR300 MG PO
== END ==
LOC: RAD 14:32
PROVIDERS: ATTEND Internal Medicine
DX: M54.2 Cervicalgia (principal); M25.512 Pain in left shoulder; M54.6 Pain in thoracic spine
CPT/HCPCS: 72050; 72072